=== PATIENT | female | born 1980 | race Caucasian/White ===

== ENCOUNTER 2017-01-18 08:48 | Day surgery (SDC) | payer BC ==
[~2017-01-18 08:48] MED LIST: IV START KIT ONE; LACTATED RINGERS 1,000 ML IV SCH; LACTATED RINGERS 1,000 ML ONE; LIDOCAINE 1% 2 ML VIAL ID PRN
[2017-01-18] MEDS ORDERED: LIDOCAINE 1% (PRES FREE) 30 ML VIAL ONE (09:12)
[2017-01-18] MEDS ORDERED: BUPIVACAINE 0.5% W/EPI SDV 30 ML VIAL ONE (09:13)
[2017-01-18] MEDS ORDERED: MIDAZOLAM HCL 5 MG/5 ML VIAL ONE (09:34)
[2017-01-18] MEDS ORDERED: FENTANYL 100 MCG/2 ML VIAL ONE (09:34)
[2017-01-18] MEDS ORDERED: DEXAMETHASONE SOD PHOS 4 MG/1 ML VIAL ONE (10:08)
[2017-01-18] MEDS ORDERED: PROPOFOL 20 ML IV ONE (10:08)
[2017-01-18] MEDS ORDERED: ONDANSETRON 4 MG/2ML 2 ML VIAL ONE (10:08)
[2017-01-18] MEDS ORDERED: ONDANSETRON 4 MG/2ML 2 ML VIAL IV PRN ×2 (10:16→11:20)
[2017-01-18] MEDS ORDERED: ATROPINE SULFATE 0.4 MG/1 ML VIAL IV PRN (10:16)
[2017-01-18] MEDS ORDERED: FENTANYL 100 MCG/2 ML VIAL IV PRN (10:16)
[2017-01-18] MEDS ORDERED: NALOXONE HCL 0.4 MG/ML VIAL IV PRN (10:16)
[2017-01-18] MEDS ORDERED: PROMETHAZINE HCL 25 MG/ML VIAL IM PRN (10:16)
[2017-01-18] MEDS ORDERED: SILVER SULFADIAZINE 1% TP ONE (10:23)
[2017-01-18] MEDS ORDERED: LACTATED RINGERS 1,000 ML IV SCH ×2 (10:30→11:20)
[2017-01-18] MEDS ORDERED: NEOMY SULF TP ONE (10:33)
[2017-01-18] MEDS ORDERED: BACITRA TP ONE (10:33)
[2017-01-18] MEDS ORDERED: POLYMYXIN B TP ONE (10:33)
[2017-01-18] MEDS ORDERED: HYDROMORPHONE HCL 1 MG/ML SYRINGE IV PRN (11:20)
[2017-01-18] MEDS ORDERED: OXYCODONE/ACETAMINOPHEN 5/325 MG TABLET PO PRN (11:20)
[2017-01-18] MEDS ORDERED: OXYCODONE/ACETAMINOPHEN 5/325 MG TABLET ONE (12:21)
--- NOTE | 2017-01-18 16:58 | PCMBPN ---
Brief Post Op Note: Date of Procedure: 01/18/17 Start Time: Preoperative Diagnosis: 1. Perianal condyloma Postoperative Diagnosis: 1. Same Procedure: Excision and cauterization perianal condyloma Surgeon: Charla Bonds MD Assist:n/a Anesthesia: MAC w/ local Findings: see dictation Condition: stable Complications: none IV Fluids: see anesthesia report Urine Output: not recorded mLs Estimated Blood Loss: 5 mLs Tourniquet Time: N/A Specimens: Anal condyloma Implants: n/a Drains: [N/A]
--- NOTE | 2017-01-18 18:26 | OP ---
FIOR BROWNLEE [id number] : 1980 DATE OF SERVICE: January 18, 2017 PREOPERATIVE DIAGNOSIS: Perianal warts. POSTOPERATIVE DIAGNOSIS: Perianal warts. PROCEDURE PERFORMED: EXCISION AND CAUTERIZATION OF PERIANAL WARTS. SURGEON: Charla Bnods M.D. ANESTHESIA: Monitored anesthesia care with local anesthetic. FINDINGS: Anterior to anal opening an area of what appears to be condyloma. Biopsies taken and sent for pathology. TECHNIQUE: The patient was taken back to the operating room, placed under monitored anesthesia care. Local anesthetic was placed in the superior lateral area at about 1 o'clock and at about 11 o'clock areas with 10 mL of anesthetic injected in each location. Once anesthetic was injected, Metzenbaum scissors were used to cut a chunk of the condyloma off and send for permanent specimen. Electrocautery was then used to cauterize all the rest of the area of condyloma. It was all localized between the 11 o'clock and 1 o'clock perianal area only about 1 cm in width. I did look inside the anal canal, and I did not see any additional condyloma in the anal canal. It was all localized to that one area. Once this was all burned, I decided it really was not that big of an area and the skin would easily stretch, so I actually removed the cauterized tissue and then used #3-0 Chromic to secure the skin back together with interrupted sutures. Once that was done, dressings were placed and the patient was awakened and returned to recovery in stable condition. All needle, instrument and sponge counts were correct at the end of the case.
--- NOTE | 2017-01-21 13:08 | SURGPATH ---
[facility] [address] [place] [id number] Patient Name: FIOR BROWNLEE MR#: [id number] : 1980 Gender: F Specimen #: [id number] Collected: 01/18/2017 Received: 01/20/2017 Reported: 01/21/2017 Submitting Phys: GLADYS GLOVER Copy To Phys: [facility] Clinical History / Pre-Operative Diagnosis: PERIANAL CONDYLOMAS Specimen Source / Surgical Procedure Performed: PERIANAL CONDYLOMA Interpretation: REMOVAL, PERIANAL LESION: - PERIANAL CONDYLOMA. Electronically Signed Out Jenny Steen M.D. Gross Description: The specimen is received in a formalin filled container labeled with the patient's name and "perianal condyloma". A raised, focally papillary pale palmer-hand biopsy is 1.3 x 0.5 x 0.3 cm. The surgical margins are inked and the specimen is multiply cross sectioned perpendicular to the long axis. Totally embedded as four sections 1 cassette. Nayeli Kline Microscopic Description: Sections of the specimen show hyperkeratosis, parakeratosis and focal papillomatosis of the squamous epithelium. There is also prominence of the granular cell layer and focal changes consistent with viral effect. No dysplasia is identified. 1: [id number] A63.0
== END 2017-01-18 12:35 | disposition home or self-care (01) ==
LOC: SDC 08:48
PROVIDERS: ATTEND Surgery
PROC: 0DBQXZZ Excision of Anus, External Approach (ICD-10-PCS; principal; 2017-01-18)
DX: A63.0 Anogenital (venereal) warts (principal)